=== PATIENT | female | born 1960 | race Caucasian/White ===

== ENCOUNTER 2020-02-24 08:44 | Day surgery (SDC) | payer SELFPAY ==
[2020-02-19 13:55] VITALS: BMI 25.4
[2020-02-24 09:38] VITALS: BP 126/83; PULSE 81; RESP 18; TEMP 37.3; O2SAT 100
[2020-02-24 09:51] LABS: Glucose Point of Care 102 mg/dL (70-110)
[2020-02-24] MEDS: sodium chloride 0.9% 1,000 ML 30 ML IV (09:54)
--- NOTE | 2020-02-24 10:05 | W.PM.OPSUD ---
Surgery/Procedure H&P Update DATE OF PROCEDURE: February 24, 2020 DATE H&P PERFORMED: 02/15/20 H&P UPDATE INFORMATION: I have reviewed H&P completed within last 30 days, I have examined patient prior to procedure and No changes to prior documentation PREOP DIAGNOSIS: Abdominal pain PRIMARY INDICATION FOR PROCEDURE: The same PLANNED PROCEDURE: Operation Date: 02/24/20 10:05 Proposed Procedures p EGD/COLON 76008 15016 R10.11(Not Applicable) - Boaz Maria MD s Colonoscopy(Not Applicable) - Boaz Maria MD
--- NOTE | 2020-02-24 10:32 | P.ANESASSM_ITS ---
Pre-Anesthetic Assessment Pre-Anesthetic Assessment: Height/Weight: Height 1.6 m Weight 65.317 kg Temp Pulse Resp BP Pulse Ox 99.2 F 81 18 126/83 100 02/24/20 09:38 02/24/20 09:38 02/24/20 09:38 02/24/20 09:38 02/24/20 09:38 Preop Diagnosis: Abdominal pain Proposed Procedure: Operation Date: 02/24/20 10:05 Proposed Procedures p EGD/COLON [id number] R10.11(Not Applicable) - Boaz Maria MD s Colonoscopy(Not Applicable) - Boaz Maria MD Last intake: Intake Last Liquid Date 02/23/20 Last Liquid Time 18:00 Last Solid Date 02/22/20 Social: Social History: Tobacco and No alcohol Exam: Pre-Anes Outpt Exam: alert, oriented x 3, clear to auscultation bilaterally and regular rate & rhythm Airway: Submandibular: WNL Cervical ROM: WNL MP: 2 Dentition: Partials (upper) and Other (very poor dentation) History/ROS: No significant history except as noted Pulmonary: Pulmonary: None reported CV/HEM: CV/HEM: None reported : Comments: one kidney Hepatic: Hepatic: None reported GI: GI: GERD Metabolic: Metabolic: DM Musc/skel: Musc/skel: OA/DJD Neuropsych: Neuropsych: Anxiety and Depression Anesthetic Plan: ASA status: 3 Anesthesia: Anesthesia Evaluation and MAC Risk of > 500 ml blood loss (7ml/kg in children): No Meds/Allergies Current Medications: Current Medications Generic Name Dose Route Start Last Admin Trade Name Freq PRN Reason Stop Dose Admin Sodium Chloride 1,000 mls @ 30 ml s/hr 02/24/20 09:30 02/24/20 09:54 Sodium Chloride 0.9% IV 02/25/20 09:29 30 mls/hr .Q24H DILAN Administration PFSH Anesthesia PFSH: Medical History Abdominal pain Depression Diabetes Surgical History History of laparoscopic cholecystectomy History of tubal ligation Family History Denies family history of Anesthesia complication Bleeding disorder Social History Smoking and tobacco status: current every day smoker Second hand smoke exposure: No Alcohol intake: never Adopted: No Caregiver/support person: Yes Lives independently: Yes Household members: spouse Housing: House Marital status: service: No Current occupational status: employed Current occupational exposures/hazards: No Pets and animals: No History of recent travel: No Sexually active: No Current gender identity: Female Morena/Hinduism: Uatsdin Data Anesthesia Other Labs: Laboratory Results - last 48 hr 02/24/20 09:48 POC Glucose 102 Cardiac Studies: No Data to Display
[2020-02-24 11:32] VITALS: BP 104/70; PULSE 67; RESP 16; TEMP 36.7; O2SAT 96
[2020-02-25 06:34] LABS: H. Pylori / CLO Test Negative
== END 2020-02-24 12:00 | disposition home or self-care (01) ==
PROVIDERS: Visit Provider Surgery
PROC: 0DJ08ZZ Inspection of Upper Intestinal Tract, Via Natural or Artificial Opening Endoscopic (ICD-10-PCS; CPT 43235; principal; 2020-02-24 10:00)
PROC: 0DJD8ZZ Inspection of Lower Intestinal Tract, Via Natural or Artificial Opening Endoscopic (ICD-10-PCS; CPT 45378; 2020-02-24 10:00)
DX: R10.84 Generalized abdominal pain (principal); K56.41 Fecal impaction; K29.70 Gastritis, unspecified, without bleeding; K21.9 Gastro-esophageal reflux disease without esophagitis; E11.9 Type 2 diabetes mellitus without complications; Z79.84 Long term (current) use of oral hypoglycemic drugs; M19.90 Unspecified osteoarthritis, unspecified site; F17.210 Nicotine dependence, cigarettes, uncomplicated
CPT/HCPCS: 12345; 36416; 43239; 45378; 82962; 87077; J2704; J7030

== ENCOUNTER 2020-03-11 08:51 | Outpatient (CLI) | payer SELFPAY ==
--- NOTE | 2020-03-11 09:30 | US_ITS ---
WS: [id number] Complete ABDOMINAL ULTRASOUND HISTORY: ABDOMINAL PAIN COMPARISON: None available. Liver: 14.2 cm in length. Liver is normal size and echogenicity with no mass or intrahepatic dilatati on. Gallbladder: Prior cholecystectomy. Pancreas: Normal size and echogenicity. CBD: 0.3 cm. Right kidney: 7.9 cm x 3.1 cm x 3.1 cm. Moderate atrophy of the RIGHT kidney. Increased echogenicity . No solid mass or obstruction. Left kidney: 9.6 cm x 4.5 cm x 5.1 cm. Normal size kidney. Cyst in the central pelvis measures 3.6 x 3.4 x 3.9 cm. No solid mass. Spleen: Normal size and echogenicity. Abdominal aorta and IVC are within normal limits. No ascites. US/US abdomen complete* [id number] IMPRESSION: 1. Prior cholecystectomy. 2. No bile duct dilatation. 3. Moderate RIGHT renal atrophy. 4. Simple cyst LEFT kidney.
== END 2020-03-11 08:52 | disposition home or self-care (01) ==
LOC: RAD 08:54
PROVIDERS: Visit Provider Surgery
DX: R10.9 Unspecified abdominal pain (principal); N26.1 Atrophy of kidney (terminal); N28.1 Cyst of kidney, acquired
CPT/HCPCS: 76700

== ENCOUNTER 2020-03-30 07:57 | Day surgery (SDC) | payer SELFPAY ==
[2020-03-28 14:15] VITALS: BMI 24.7
--- NOTE | 2020-03-30 08:20 | P.ANESASSM_ITS ---
Pre-Anesthetic Assessment Pre-Anesthetic Assessment: Height/Weight: Height 1.6 m Weight 63.503 kg Preop Diagnosis: Abdominal pain Proposed Procedure: Operation Date: 03/30/20 09:00 Proposed Procedures p [id number]/R10.9(Not Applicable) - Boaz Maria MD Familial anesthetic complications: None Was Beta Melody taken within 24 hours: N/A Last intake: Intake Last Liquid Date 03/29/20 Last Liquid Time 21:00 Last Solid Date 03/28/20 Last Solid Time 16:30 Social: Social History: Tobacco and No alcohol Exam: Pre-Anes Outpt Exam: alert, oriented x 3, clear to auscultation bilaterally and regular rate & rhythm Airway: Cervical ROM: WNL MP: 1 Dentition: Partials Pulmonary: Pulmonary: Asthma : : None reported Hepatic: Hepatic: None reported GI: GI: GERD Metabolic: Metabolic: DM Musc/skel: Musc/skel: None reported Neuropsych: Neuropsych: None reported Anesthetic Plan: ASA status: 2 Anesthesia: MAC Risk of > 500 ml blood loss (7ml/kg in children): No PFSH Anesthesia PFSH: Medical History Abdominal pain Depression Diabetes Surgical History History of colonoscopy (~01/2020) History of esophagogastroduodenoscopy (EGD) (~01/2020) History of laparoscopic cholecystectomy History of tubal ligation Family History Denies family history of Anesthesia complication Bleeding disorder Social History Smoking and tobacco status: current every day smoker Second hand smoke exposure: No Alcohol intake: never Adopted: No Caregiver/support person: Yes Lives independently: Yes Household members: spouse Housing: House Marital status: service: No Current occupational status: employed Current occupational exposures/hazards: No Pets and animals: No History of recent travel: No Sexually active: No Current gender identity: Female Morena/Orthodoxy: Evangelical Data Anesthesia Cardiac Studies: No Data to Display
[2020-03-30] MEDS: sodium chloride 0.9% 1,000 ML 30 ML IV (08:37)
--- NOTE | 2020-03-30 08:38 | W.PM.OPSUD ---
Surgery/Procedure H&P Update DATE OF PROCEDURE: March 30, 2020 DATE H&P PERFORMED: 03/14/20 H&P UPDATE INFORMATION: I have reviewed H&P completed within last 30 days, I have examined patient prior to procedure and No changes to prior documentation (Patient feels that she had a better colon prep this time) PREOP DIAGNOSIS: Abdominal pain PRIMARY INDICATION FOR PROCEDURE: The same PLANNED PROCEDURE: Operation Date: 03/30/20 09:00 Proposed Procedures p [id number]/R10.9(Not Applicable) - Boaz Maria MD
[2020-03-30 09:04] VITALS: BP 97/60; PULSE 67; RESP 16; TEMP 36.4; O2SAT 99
--- NOTE | 2020-03-30 09:08 | ANE.PACU2 ---
Inpatient post-anesthesia follow up: Airway intact: Yes Vital signs: Temperature Pulse Rate Respiratory Rate Blood Pressure Pulse Oximetry Oxygen Delivery Me thod Oxygen Flow Rate Fraction of Inspir ed Oxygen Hydration adequate: Yes Nausea and vomiting: No Mental status: Baseline
[2020-03-30 09:22] VITALS: BP 105/68; PULSE 66; RESP 16; O2SAT 100
== END 2020-03-30 09:30 | disposition home or self-care (01) ==
PROVIDERS: Visit Provider Surgery
PROC: 0DJD8ZZ Inspection of Lower Intestinal Tract, Via Natural or Artificial Opening Endoscopic (ICD-10-PCS; CPT 45378; principal; 2020-03-30 09:00)
DX: R10.84 Generalized abdominal pain (principal); E11.9 Type 2 diabetes mellitus without complications; Z79.84 Long term (current) use of oral hypoglycemic drugs; F17.210 Nicotine dependence, cigarettes, uncomplicated; K21.9 Gastro-esophageal reflux disease without esophagitis; J45.909 Unspecified asthma, uncomplicated
CPT/HCPCS: 12345; 45378; J2704; J7030

== ENCOUNTER 2020-05-02 08:09 | Outpatient (CLI) | payer SELFPAY ==
--- NOTE | 2020-05-02 08:30 | FL_ITS ---
WS: [id number] BARIUM ENEMA SINGLE CONTRAST. HISTORY: R10.9 Unspecified abdominal pain COMPARISON: None available. FLUOROSCOPY TIME: 1.7 minutes. Barium is instilled via gravity through a rectal tip. There are no strictures or soft tissue mass is identified. There is mild tortuosity and overlapping loops of colon. No significant diverticula ident ified. There is reflux of the contrast into the distal small bowel. The appendix fills and normal. Prior cholecystectomy. Mild RIGHT convex curvature lumbar spine. FL/FL barium enema [id number] IMPRESSION: 1. Mild tortuosity and overlapping loops of colon. No strictures or diverticul ar disease. 2. Normal appendix. 3. Prior cholecystectomy.
== END 2020-05-02 08:10 | disposition home or self-care (01) ==
LOC: RAD 08:10
PROVIDERS: Visit Provider Surgery
DX: R10.9 Unspecified abdominal pain (principal); Z90.49 Acquired absence of other specified parts of digestive tract
CPT/HCPCS: 74270

== ENCOUNTER 2020-09-12 07:41 | Outpatient (CLI) | payer SELFPAY ==
--- NOTE | 2020-09-12 07:47 | US_ITS ---
WS: [id number] ULTRASOUND RENAL TECHNIQUE: Ultrasound examination of both kidneys. CLINICAL INFORMATION: CYST OF KIDNEY COMPARISON: None. FINDINGS: RIGHT: Right kidney somewhat small with cortical atrophy Echogenicity: Increased echogenicity Cortical thickness: 0.8 cm; Normal. Hydronephrosis: None. Perinephric fluid: None. Right kidney measures: 8.8 cm x 4.6 cm x 3.2 cm. LEFT:Simple cyst left kidney measuring 3.6 x 3.8 x 3.5 cm Left kidney is normal in size and appearance. Echogenicity: Normal. Cortical thickness: 1.6 cm; Normal. Hydronephrosis: None. Perinephric fluid: None. Left kidney measures: 9.7 cm x 5.1 cm x 3.9 cm. Normal visualized aorta. Normal bladder US/US renal BI* [id number] IMPRESSION: 1. Simple cyst left kidney measuring 3.6 x 3.8 x 3.5 cm unchanged from previou s 2. No hydronephrosis in either kidney. 3. Somewhat atrophic right kidney with increased echogenicity can be seen with medical renal disease.
== END 2020-09-12 07:42 | disposition home or self-care (01) ==
LOC: US 07:42
PROVIDERS: PCP Nurse Practitioner Family; Visit Provider Registered Nurse
DX: N28.1 Cyst of kidney, acquired (principal)
CPT/HCPCS: 76770

== ENCOUNTER 2021-11-27 14:13 | Outpatient (CLI) | payer OTHER, SELFPAY ==
--- NOTE | 2021-11-27 14:32 | USCV_ITS ---
Donna Adam Age: 61 Gender: F : 1960 Exam Date: 11/27/2021 15:01 Ordering Phys: Narciso Ventura Technologist: TAMIKO [place]am [place] [facility] [place] Indication: Peripheral edema BP: 129 / 86 HR: 78 Rhythm: Sinus Technical Quality: Suboptimal MEASUREMENTS (Male / Female) Normal Values 2D ECHO LV Diastolic Diameter PLAX 2.5 cm 4.2 - 5.9 / 3.9 - 5.3 cm LV Systolic Diameter PLAX 1.7 cm IVS Diastolic Thickness 1.1 cm 0.6 - 1.0 / 0.6 - 0.9 cm IVS Systolic Thickness 1.1 cm LVPW Diastolic Thickness 1.0 cm 0.6 - 1.0 / 0.6 - 0.9 cm LVPW Systolic Thickness 1.1 cm LVOT Diameter 2.0 cm LV Ejection Fraction 2D Teich 66.2 % LV Ejection Fraction MOD 2C 56.3 % LV Ejection Fraction 2C AL 61.3 % LA Diameter 2.7 cm LA Width 2.3 cm LA Height 3.0 cm RA Width 2.3 cm RA Height 3.0 cm Aorta at Sinotubular Diameter 2.1 cm M-MODE Aortic Annulus Diameter 2.9 cm LA Ao Ratio MM 0.9 MV E Point Septal Separation 0.4 cm DOPPLER AV Peak Velocity 108.0 cm/s LVOT Peak Velocity 95.0 cm/s AV Area Cont Eq vti 3.3 cm squared AV Area Cont Eq pk 2.9 cm squared MV Area PHT 3.4 cm squared Mitral E to A Ratio 0.7 MV E' Velocity 32.0 cm/s Mitral E to MV E' Ratio 8.7 Mitral E to LV E' Lateral Ratio 8.1 Mitral E to LV E' Septal Ratio 9.6 TR Peak Velocity 221.7 cm/s TR Peak Gradient 19.7 mmHg TV Peak E Velocity 42.0 cm/s Right Atrial Pressure 3.0 mmHg Pulmonary Artery Systolic Pressu 22.7 mmHg PV Peak Velocity 90.0 cm/s RV Acceleration Time 0.2 s RV Ejection Time 0.3 s RV AcT/ET 0.6 FINDINGS Left Ventricle Normal left ventricular cavity size and wall thickness. Normal left ventricular systolic function. Left ventricular ejection fraction is estimated at 70 %. No diagnostic regional wall motion abnormalities. Normal diastolic function. Right Ventricle Normal right ventricular size and systolic function. RVSP could not be calculated due to incomplete tricuspid regurgitation velocity profile. Right Atrium Normal right atrial size. Right atrial pressure estimated at 3 mmHg. Left Atrium Normal left atrial size. Mitral Valve Structurally normal mitral valve. No mitral valve stenosis. No mitral valve regurgitation. Aortic Valve Structurally normal trileaflet aortic valve. No aortic valve stenosis. No aortic valve regurgitation. Tricuspid Valve Structurally normal tricuspid valve. No tricuspid valve stenosis. Trace tricuspid valve regurgitation. Pulmonic Valve Pulmonic valve not well visualized. Pericardium No pericardial effusion. Prominent epicardial fat. Aorta Normal size aortic root and proximal ascending aorta. Normal- sized inferior vena cava with normal respiratory variation. CONCLUSIONS 1. Normal left ventricular cavity size, wall thickness and systolic function. Left ventricular ejection fraction is estimated at 70 %. No diagnostic regional wall motion abnormalities. Normal diastolic function. 2. No significant valvular abnormality. 3. Right atrial pressure estimated at 3 mmHg. 4. No prior similar studies to compare. Lizbeth Gordon MD (Electronically Signed) Final Date: 29 November 2021 12:09 S
== END 2021-11-27 14:14 | disposition home or self-care (01) ==
LOC: RAD 14:28
PROVIDERS: PCP Nurse Practitioner Family; Visit Provider Registered Nurse
DX: R60.0 Localized edema (principal)
CPT/HCPCS: 93306

== ENCOUNTER → 2022-05-11 12:04 | Outpatient (BNVA) | payer OTHER, SELFPAY | PROVIDERS: PCP Nurse Practitioner Family; Visit Provider Nurse Practitioner Family | DX: E11.9 Type 2 diabetes mellitus without complications (principal) | CPT/HCPCS: 80053; 80061; 83036; 85025 ==

== ENCOUNTER → 2022-12-07 08:13 | Outpatient (BNVA) | payer OTHER, BC, SELFPAY | PROVIDERS: PCP Nurse Practitioner Family; Visit Provider Nurse Practitioner Family | DX: E11.9 Type 2 diabetes mellitus without complications (principal); E78.5 Hyperlipidemia, unspecified | CPT/HCPCS: 80053; 80061; 83036; 85025 ==

== ENCOUNTER 2022-12-14 20:48 | Emergency (ER) | payer OTHER, BC, MEDICAID, SELFPAY ==
[2022-12-14 20:51] VITALS: BP 144/70; PULSE 89; RESP 16; TEMP 36.6; O2SAT 98; BMI 26.9
--- NOTE | 2022-12-14 21:04 | W.ED.RECABL ---
Documented by User: GULSHAN Guerra 12/14/22 21:51 HPI - Recheck/Abnormal Lab/Rx General: Chief Complaint: Recheck/Abnormal Lab/Rx Stated Complaint: Dr. Arnold sent, K+ is high Time Seen by Provider: 12/14/22 21:04 History of Present Illness: 62-year-old female comes in today for concerns of elevated potassium. Patient had a elevated potassium on laboratory done today that was registered at 6.6. Patient appears nontoxic. Patient reports no chest pain or shortness of breath. Patient is alert and oriented. Patient had a prior blood test done about 3 days prior that showed 5.9. Patient has a history of diabetes mellitus type 2. Patient takes metformin, pantoprazole, famotidine, pioglitazone, and lorazepam. Patient reports no falls or injuries. Patient denies any [id number] supplements. Patient does have an atrophied kidney. Review of Systems General: Reports: 10 or more systems reviewed and unremarkable except in HPI and below Const: Denies: fever(s) Card: Denies: chest pain Resp: Denies: dyspnea GI: Denies: nausea, vomiting, diarrhea or constipation Musc: Denies: neck pain or back pain Skin/Breast: Denies: rash PFSH ED PFSH: Medical History Abdominal pain Patient felt better after her colon prep Depression Diabetes Surgical History History of colonoscopy (~01/2020) History of esophagogastroduodenoscopy (EGD) (~01/2020) History of laparoscopic cholecystectomy History of tubal ligation Family History Denies family history of Anesthesia complication Bleeding disorder Social History Smoking and tobacco status: current every day smoker Second hand smoke exposure: No Alcohol intake: never Adopted: No Caregiver/support person: Yes Lives independently: Yes Household members: spouse Housing: House Marital status: service: No Current occupational status: employed Current occupational exposures/hazards: No Pets and animals: No Sexually active: No Current gender identity: Female Morena/Quaker: Scientology Physical Exam Const: COMMON NORMALS: alert HENMT: COMMON NORMALS: normocephalic HEAD & SCALP: normocephalic Neck/C-Spine: COMMON NORMALS: full ROM Chest: COMMONS NORMALS: normal palpation of entire chest wall Resp: COMMON NORMALS: normal respiratory effort Cardio: COMMON NORMALS: regular rate and regular rhythm RATE: regular rate RHYTHM: regular rhythm GI: COMMON NORMALS: Soft to palpation PALPATION: Yes Soft to palpation Extremity: COMMON NORMALS: full ROM Neuro: SENSORIUM/ORIENTATION: Yes alert Skin: COMMON NORMALS: turgor normal GENERAL SKIN EXAM: turgor normal Course Vital Signs: Vital signs: Vital Signs Temperature 97.9 F 12/14/22 20:51 Pulse Rate 89 12/14/22 20:51 Respiratory Rate 16 12/14/22 20:51 Blood Pressure 144/70 12/14/22 20:51 Pulse Oximetry 98 12/14/22 20:51 Oxygen Delivery Me thod 12/14/22 20:51 MDM - Recheck/Abnormal Lab/Rx Medical Decision Making 62-year-old female comes in today for complaints of elevated blood potassium. On exam patient appears nontoxic. Patient appears in no acute distress. Abdomen soft nontender. Vital signs are normal. Differential diagnosis includes but not limited to hyperkalemia, chronic kidney disease, abnormal lab value. BMP showed a potassium of 3.7. No other concerns were noted on the labs. Recommend patient follow-up with primary care for further instructions. Return to ED for new concerns. Lab Data 12/14/22 21:10 Laboratory Results Sodium 140 mmol/L (136-145) 12/14/22 21:10 Potassium 3.7 mmol/L (3.5-5.1) 12/14/22 21:10 Chloride 103 mmol/L (98-107) 12/14/22 21:10 Carbon Dioxide 23 mmol/L (22-29) 12/14/22 21:10 Anion Gap 17.7 (5-19) 12/14/22 21:10 BUN 8 mg/dL (8-23) 12/14/22 21:10 Creatinine 0.9 mg/dL (0.5-0.9) 12/14/22 21:10 GFR Calculation 63.0 mL/min (90-130) L 12/14/22 21:10 Glucose 131 mg/dL (65-115) H 12/14/22 21:10 Calculated Osmolality 290 mOsm/kg (285-295) 12/14/22 21:10 Calcium 9.9 mg/dL (8.5-10.5) 12/14/22 21:10 Discharge Plan Discharge Patient Disposition: Home Clinical Impression: Abnormal blood chemistry level Condition: Stable Prescriptions: No Action ezetimibe 10 mg tablet 10 mg PO DAILY metformin 500 mg tablet extended release 24 hr 500 mg PO BID pioglitazone [Actos] 15 mg tablet 15 mg PO DAILY Qty: 90 1RF buspirone 15 mg tablet PO pioglitazone [Actos] 45 mg tablet 45 mg PO DAILY Qty: 90 1RF loratadine [Claritin] 10 mg tablet 10 mg PO DAILY lorazepam [Ativan] 0.5 mg tablet 0.5 mg PO TID PRN (Reason: anxiety) Qty: 90 1RF pantoprazole [Protonix] 40 mg tablet,delayed release (DR/EC) 40 mg PO DAILY Qty: 90 2RF famotidine [Zantac-360 (famotidine)] 20 mg tablet 20 mg PO BID Qty: 180 2RF sennosides [Senna Lax] 8.6 mg tablet 8.6 mg PO BID PRN (Reason: constipation) Qty: 90 1RF (DME) FreeStyle Yamilex 14 Day Sensor Kit See Rx Instructions .Route Qty: 1 8RF Rx Instructions: As directed (DME) Dexcom G6 Transmitter Device See Rx Instructions .Route Qty: 1 5RF Rx Instructions: As directed (DME) Dexcom G6 Sensor Device See Rx Instructions .Route Qty: 3 5RF Rx Instructions: As directed (DME) Dexcom G6 E Commerce Architect Misc See Rx Instructions .Route Qty: 1 5RF Rx Instructions: As directed Discharge Orders: Discharge ED (Routine); Ordered 12/14/22 Ordered By: Chilango De Anda Referrals: Bobby Arnold FNP [Primary Care Provider] - Discharge Diet: Usual diet Discharge Activity: Increase activity as tolerated Patient Instructions: Hyperkalemia (ED) Activity Restrictions/Additional Instructions: Home and rest. Continue with routine care. Follow-up with primary care for further instructions. Coding Level of Care Code ED Managed Care Analyst for Chg Fwd Documented by User: Anand Viera DO 12/15/22 00:56 HPI - Recheck/Abnormal Lab/Rx General: Chief Complaint: Recheck/Abnormal Lab/Rx Stated Complaint: Dr. Arnold sent, K+ is high Time Seen by Provider: 12/14/22 21:04 PFSH ED PFSH: Medical History Abdominal pain Patient felt better after her colon prep Depression Diabetes Surgical History History of colonoscopy (~01/2020) History of esophagogastroduodenoscopy (EGD) (~01/2020) History of laparoscopic cholecystectomy History of tubal ligation Family History Denies family history of Anesthesia complication Bleeding disorder Social History Smoking and tobacco status: current every day smoker Second hand smoke exposure: No Alcohol intake: never Adopted: No Caregiver/support person: Yes Lives independently: Yes Household members: spouse Housing: House Marital status: service: No Current occupational status: employed Current occupational exposures/hazards: No Pets and animals: No Sexually active: No Current gender identity: Female Morena/Quaker: Scientology Course Vital Signs: Vital signs: Vital Signs Temperature 97.9 F 12/14/22 20:51 Pulse Rate 89 12/14/22 20:51 Respiratory Rate 16 12/14/22 20:51 Blood Pressure 144/70 12/14/22 20:51 Pulse Oximetry 98 12/14/22 20:51 Oxygen Delivery Me thod 12/14/22 20:51 MDM - Recheck/Abnormal Lab/Rx Medical Decision Making 62-year-old female comes in today for complaints of elevated blood potassium. On exam patient appears nontoxic. Patient appears in no acute distress. Abdomen soft nontender. Vital signs are normal. Differential diagnosis includes but not limited to hyperkalemia, chronic kidney disease, abnormal lab value. BMP showed a potassium of 3.7. No other concerns were noted on the labs. Recommend patient follow-up with primary care for further instructions. Return to ED for new concerns. This patient was originally seen by GULSHAN Hugo.? I agree with his history, evaluation, and treatment. Lab Data 12/14/22 21:10 Laboratory Results Sodium 140 mmol/L (136-145) 12/14/22 21:10 Potassium 3.7 mmol/L (3.5-5.1) 12/14/22 21:10 Chloride 103 mmol/L (98-107) 12/14/22 21:10 Carbon Dioxide 23 mmol/L (22-29) 12/14/22 21:10 Anion Gap 17.7 (5-19) 12/14/22 21:10 BUN 8 mg/dL (8-23) 12/14/22 21:10 Creatinine 0.9 mg/dL (0.5-0.9) 12/14/22 21:10 GFR Calculation 63.0 mL/min (90-130) L 12/14/22 21:10 Glucose 131 mg/dL (65-115) H 12/14/22 21:10 Calculated Osmolality 290 mOsm/kg (285-295) 12/14/22 21:10 Calcium 9.9 mg/dL (8.5-10.5) 12/14/22 21:10 Discharge Plan Discharge Patient Disposition: Home Clinical Impression: Abnormal blood chemistry level Condition: Stable Prescriptions: No Action ezetimibe 10 mg tablet 10 mg PO DAILY metformin 500 mg tablet extended release 24 hr 500 mg PO BID pioglitazone [Actos] 15 mg tablet 15 mg PO DAILY Qty: 90 1RF buspirone 15 mg tablet PO pioglitazone [Actos] 45 mg tablet 45 mg PO DAILY Qty: 90 1RF loratadine [Claritin] 10 mg tablet 10 mg PO DAILY lorazepam [Ativan] 0.5 mg tablet 0.5 mg PO TID PRN (Reason: anxiety) Qty: 90 1RF pantoprazole [Protonix] 40 mg tablet,delayed release (DR/EC) 40 mg PO DAILY Qty: 90 2RF famotidine [Zantac-360 (famotidine)] 20 mg tablet 20 mg PO BID Qty: 180 2RF sennosides [Senna Lax] 8.6 mg tablet 8.6 mg PO BID PRN (Reason: constipation) Qty: 90 1RF (DME) FreeStyle Yamilex 14 Day Sensor Kit See Rx Instructions .Route Qty: 1 8RF Rx Instructions: As directed (DME) Dexcom G6 Transmitter Device See Rx Instructions .Route Qty: 1 5RF Rx Instructions: As directed (DME) Dexcom G6 Sensor Device See Rx Instructions .Route Qty: 3 5RF Rx Instructions: As directed (DME) Dexcom G6 E Commerce Architect Misc See Rx Instructions .Route Qty: 1 5RF Rx Instructions: As directed Discharge Orders: Discharge ED (Routine); Ordered 12/14/22 Ordered By: Chilango De Anda Referrals: Bobby Arnold FNP [Primary Care Provider] - Discharge Diet: Usual diet Discharge Activity: Increase activity as tolerated Patient Instructions: Hyperkalemia (ED) Activity Restrictions/Additional Instructions: Home and rest. Continue with routine care. Follow-up with primary care for further instructions. Coding Level of Care Code ED Managed Care Analyst for Ghazala Ferrer
[2022-12-14 21:39] LABS: Anion Gap 17.7 (5-19); Blood Urea Nitrogen 8 mg/dL (8-23); Calcium 9.9 mg/dL (8.5-10.5); Carbon Dioxide 23 mmol/L (22-29); Chloride 103 mmol/L (98-107); Glucose 131 mg/dL (65-115); Osmolality Calculated 290 mOsm/kg (285-295); Potassium 3.7 mmol/L (3.5-5.1); Sodium 140 mmol/L (136-145)
== END 2022-12-14 22:44 | disposition home or self-care (01) ==
PROVIDERS: Emergency Provider Nurse Practitioner Family; PCP Nurse Practitioner Family
DX: E87.5 Hyperkalemia (principal); Z79.84 Long term (current) use of oral hypoglycemic drugs; E11.9 Type 2 diabetes mellitus without complications; F17.210 Nicotine dependence, cigarettes, uncomplicated
CPT/HCPCS: 80048; 80053; 99283

== ENCOUNTER → 2023-03-18 11:33 | Outpatient (BNVA) | payer OTHER, BC, MEDICAID, SELFPAY | PROVIDERS: PCP Nurse Practitioner Family; Visit Provider Nurse Practitioner | DX: E11.9 Type 2 diabetes mellitus without complications (principal) | CPT/HCPCS: 80053; 83036; 84443; 85025 ==

== ENCOUNTER 2023-07-11 06:00 | Day surgery (SDC) | payer MEDICARE, MEDICAID, SELFPAY ==
[2023-07-11 06:15] VITALS: BP 140/85; PULSE 90; RESP 18; TEMP 36.1; O2SAT 96; BMI 25.8
[2023-07-11] MEDS: sodium chloride 0.9% 1,000 ML 30 ML IV (06:27)
[2023-07-11 06:29] LABS: Glucose Point of Care 186 mg/dL (70-110)
--- NOTE | 2023-07-11 06:44 | P.ANESASSM_ITS ---
Pre-Anesthetic Assessment Height/Weight: Height 1.6 m Weight 66.224 kg Temp Pulse Resp BP Pulse Ox O2 Del Method 97 F L 90 18 140/85 96 Room Air 07/11/23 06:15 07/11/23 06:15 07/11/23 06:15 07/11/23 06:15 07/11/23 06:15 07/11/23 06:15 Preop Diagnosis: screening Operation Date: 07/11/23 07:00 Proposed Procedures p [id number] egd [id number] colon, G0121 screen colon A risk K21.9,Z12.11(Not Applicable) - Robb Fowler DO s Colonoscopy(Not Applicable) - Robb Fowler DO Was Beta Melody taken within 24 hours: N/A Was Clonidine taken within 24 hours: N/A Last intake: Intake Last Liquid Date 07/10/23 Last Liquid Time 21:00 Last Solid Date 07/08/23 Last Solid Time 17:00 Social Tobacco 1/2 pack(s) per day 10 pack years Exam alert and oriented x 3 Airway Submandibular: within normal limits Cervical ROM: within normal limits Mallampati: Class II Dentition: false History/ROS No significant history except as noted Pulmonary Asthma CV/HEM None reported None reported (one kidney) Hepatic None reported GI Gastroesophageal Reflux Disease and Hiatal Hernia Metabolic Diabetes Mellitus Musc/skel None reported Neuropsych Anxiety Anesthetic Plan ASA status: 2 Anesthesia: MAC Risk of > 500 ml blood loss (7ml/kg in children): No Medications/Allergies Home Medications Medication Instructions Recorded Confirmed Last Taken Type flash glucose sensor (FreeStyle #1 ea 06/08/22 07/11/23 Unknown Rx Yamilex 14 Day Sensor kit) loratadine 10 mg tablet (Claritin) 10 mg PO DAILY 08/15/22 07/09/23 07/07/23 H istory famotidine 20 mg tablet 20 mg PO BID #180 tabs 10/17/22 07/09/23 07/10/23 Rx (Zantac-360 (famotidine)) sennosides 8.6 mg tablet (Senna 8.6 mg PO BID PRN constipation #90 10/17/2206/3007/07/23 Rx Lax) tabs pioglitazone 45 mg tablet (Actos) 45 mg PO DAILY #90 tabs 12/12/22 07/09/23 07/09/23 Rx lorazepam 0.5 mg tablet (Ativan) 0.5 mg PO TID PRN anxiety #90 tabs 02/13/23 07/09/23 07/10/23 Rx sitagliptin phosphate 25 mg tablet 25 mg PO DAILY #30 tabs 03/20/23 07/09/23 07/10/23 Rx (Januvia) lactulose 20 gram oral packet 20 g PO BID PRN laxative effect 06/06/23 07/09/23 07/07/23 Rx #30 ea simethicone 180 mg capsule 180 mg PO BID PRN abdominal 06/06/23 07/09/23 07/07/23 Rx distention/gas #60 caps blood-glucose meter,continuous #1 ea 07/02/23 07/11/23 Unknown Rx (Dexcom G7 Visual Merchandising Assistant) blood-glucose sensor (Dexcom G7 #1 ea 07/02/23 07/11/23 Unknown Rx Sensor device) pantoprazole 40 mg tablet,delayed 40 mg PO BID 6 weeks #84 tabs 07/03/23 07/09/23 07/10/23 Rx release (Protonix) Allergies Allergy/AdvReac Type Severity Reaction Status Date / Time No Known Allergies Allergy Verified 07/09/23 10:39 Current Medications Generic Name Dose Route Start Last Admin Trade Name Freq PRN Reason Stop Dose Admin Sodium Chloride 1,000 mls @ 30 mls/hr 07/11/23 06:15 07/11/23 06:27 Sodium Chloride 0.9% IV 07/12/23 06:14 30 mls/hr .Q24H DILAN Administration PFSH Anesthesia Medical History Abdominal pain Patient felt better after her colon prep Depression Diabetes Surgical History History of colonoscopy (~01/2020) History of esophagogastroduodenoscopy (EGD) (~01/2020) History of laparoscopic cholecystectomy History of tubal ligation Family History Denies family history of Anesthesia complication Bleeding disorder Social History Smoking and tobacco/nicotine status: current every day tobacco/nicotine user Second hand smoke exposure: No Alcohol intake: never Adopted: No Caregiver/support person: Yes Lives independently: Yes Household members: spouse Housing: House Marital status: service: No Current occupational status: employed Current occupational exposures/hazards: No Pets and animals: No Sexually active: No Do you think of yourself as: Straight/Heterosexual Current gender identity: Female Morena/Mandaeism: Pentecostal Data Anesthesia Cardiac Studies: Echocardiogram 11/27/21
--- NOTE | 2023-07-11 08:03 | W.PM.OPSUD ---
Surgery/Procedure H&P Update DATE OF PROCEDURE: July 11, 2023 DATE H&P PERFORMED: 07/03/23 H&P UPDATE INFORMATION: I have reviewed H&P completed within last 30 days, I have examined patient prior to procedure and No changes to prior documentation PREOP DIAGNOSIS: screening PLANNED PROCEDURE: Operation Date: 07/11/23 07:00 Proposed Procedures p 02770 egd 59104 colon, G0121 screen colon A risk K21.9,Z12.11(Not Applicable) - DO zachary Rees Colonoscopy(Not Applicable) - Robb Fowler DO
[2023-07-11 08:27] VITALS: BP 87/53; PULSE 68; RESP 16; TEMP 36.4; O2SAT 91
[2023-07-11 08:33] VITALS: BP 93/56; PULSE 68; RESP 16; O2SAT 91
--- NOTE | 2023-07-11 08:39 | PC.NURSE ---
patient has her glasses, hearing aids, dentures and other personal belongings.
[2023-07-11 08:43] VITALS: BP 94/58; PULSE 68; RESP 18; O2SAT 94
--- NOTE | 2023-07-11 12:44 | ANE.PACU2 ---
Inpatient post-anesthesia follow up: Airway intact: Yes Vital signs: Temperature 97.5 F Pulse Rate 68 Respiratory Rate 18 Blood Pressure 94/58 Pulse Oximetry 94 Oxygen Delivery Me thod Room Air Oxygen Flow Rate Fraction of Inspir ed Oxygen Hydration adequate: Yes Nausea and vomiting: No Pain level: 2 Mental status: Baseline
== END 2023-07-11 08:58 | disposition home or self-care (01) ==
PROVIDERS: PCP Nurse Practitioner Family; Visit Provider Surgery
PROC: 0DJ08ZZ Inspection of Upper Intestinal Tract, Via Natural or Artificial Opening Endoscopic (ICD-10-PCS; CPT 43235; principal; 2023-07-11 07:00)
PROC: 0DJD8ZZ Inspection of Lower Intestinal Tract, Via Natural or Artificial Opening Endoscopic (ICD-10-PCS; CPT 45378; 2023-07-11 07:00)
DX: Z12.11 Encounter for screening for malignant neoplasm of colon (principal); D12.5 Benign neoplasm of sigmoid colon; K29.70 Gastritis, unspecified, without bleeding; K21.9 Gastro-esophageal reflux disease without esophagitis; E11.9 Type 2 diabetes mellitus without complications; F17.210 Nicotine dependence, cigarettes, uncomplicated
CPT/HCPCS: 36416; 43239; 45385; 82962; 88305; J2704; J7030

== ENCOUNTER 2023-07-19 06:45 | Outpatient (CLI) | payer MEDICARE, MEDICAID, SELFPAY ==
--- NOTE | 2023-07-19 07:14 | CT_ITS ---
WS: [id number] CT ABDOMEN PELVIS TECHNIQUE: Noncontrast CT of the abdomen and contrast-enhanced CT of the abdomen and pelvis with ariel nal and sagittal reformatted images. CLINICAL INFORMATION: K44.9 - Diaphragmatic hernia without obstruction or gangrene COMPARISON: None. DLP: 830.[address] scans at [facility] use at least one of these dose optimization techniques: automated e xposure control; mA and/or kV adjustment per patient size (includes targeted exams where dose is matc hed to clinical indication); or iterative reconstruction. FINDINGS: Lung bases are well aerated. Mild diffuse fatty filtration of the liver. Prior cholecystectomy. Tiny esophageal hiatal hernia. Normal proximal stomach and duodenum. Normal portal vein and splenic vein. Fatty atrophy of the pancreas. Normal spleen. Normal caliber abdominal aorta. Celiac and SMA are zaman nt. Adrenal glands are normal. Hypoplastic RIGHT kidney. No hydronephrosis in either kidney. LEFT dominique al cyst measuring 4.3 cm. Normal renal parenchymal enhancement. Tiny fat-containing umbilical hernia. Tubal ligation clips. Normal sigmoid colon. No evidence of high -grade small or large bowel obstruction. Normal appendix. No other suspicious findings. IMPRESSION: 1. Tiny esophageal hiatal hernia. 2. Prior cholecystectomy and tubal ligation clips. 3. Diffuse fatty filtration of the liver. 4. LEFT renal cyst measuring 4.3 cm. 5. Hypoplastic RIGHT kidney. 6. Tiny fat-containing umbilical hernia. 7. Lobulated uterus with suspected calcified uterine fibroid. This could be followed-up with ultraso und. Suspected fibroid measures 2.8 x 2.3 cm
[2023-07-19 07:56] LABS: Blood Urea Nitrogen 14 mg/dL (8-23); Glomerular Filtration Rate 45.1 mL/min (90-130)
[2023-07-19] MEDS: iohexol 350 mg/mL 500 mL Btl (per mL) IV (08:00)
[2023-07-19] MEDS: iohexol 350 mg/mL 500 mL Btl (per mL) PO (08:06)
== END 2023-07-19 06:46 | disposition home or self-care (01) ==
LOC: RAD 06:45
PROVIDERS: PCP Nurse Practitioner Family; Visit Provider Nurse Practitioner Family
DX: K44.9 Diaphragmatic hernia without obstruction or gangrene; K76.0 Fatty (change of) liver, not elsewhere classified; N28.1 Cyst of kidney, acquired; K42.9 Umbilical hernia without obstruction or gangrene; Z90.49 Acquired absence of other specified parts of digestive tract; E11.9 Type 2 diabetes mellitus without complications; R14.0 Abdominal distension (gaseous); R10.9 Unspecified abdominal pain
CPT/HCPCS: 74178; 82565; 84520; 99203; Q9967

== ENCOUNTER → 2023-07-23 13:42 | Outpatient (BNVA) | payer MEDICARE, MEDICAID, SELFPAY | PROVIDERS: PCP Nurse Practitioner Family; Visit Provider Surgery | DX: R14.0 Abdominal distension (gaseous) (principal); R10.9 Unspecified abdominal pain | CPT/HCPCS: 99214 ==

== ENCOUNTER 2023-08-05 13:30 | Outpatient (CLI) | payer MEDICARE, MEDICAID, SELFPAY ==
--- NOTE | 2023-08-05 15:00 | US_ITS ---
WS: [id number] US transvaginal [id number] HISTORY: D25.9 - Leiomyoma of uterus, unspecified COMPARISON: CT 07/19/2023 Uterus: 5.1 cm x 4.3 cm x 3.8 cm. Normal size uterus is directed posterior and retroverted. There is a shadowing mass with calcificatio n in the RIGHT lateral uterus measuring 2.7 x 2.7 x 2.0 cm. Corresponds to the calcified fibroid iden tified by recent CT. Endometrium: 0.7 cm. Poorly visualized due to position of the uterus. No abnormality identified. Neither ovary is identified. No free fluid in the cul-de-sac. IMPRESSION: 1. Calcified RIGHT lateral uterine fibroid measures 2.7 x 2.7 x 2.0 cm. 2. Neither ovary is identified.
[2023-08-05 15:46] LABS: Immunoglobulin IGA 417 mg/dL (70-400); Immunoglobulin IGG 1116 mg/dL (700-1600); Immunoglobulin IGM 69 mg/dL (40-230)
[2023-08-08 03:20] LABS: Tissue Transglutaminse AB IGA <1.0 U/mL
== END 2023-08-05 13:31 | disposition home or self-care (01) ==
PROVIDERS: Absent Provider Surgery; PCP Nurse Practitioner Family; Visit Provider Nurse Practitioner Family
DX: D25.9 Leiomyoma of uterus, unspecified (principal)
CPT/HCPCS: 36415; 76830; 82784; 86364

== ENCOUNTER 2023-08-13 08:53 | Outpatient (CLI) | payer MEDICARE, MEDICAID, SELFPAY ==
--- NOTE | 2023-08-13 08:59 | MM_ITS ---
WS: [id number] BILATERAL 3D TOMOSYNTHESIS DIGITAL SCREENING MAMMOGRAPHY WITH CAD CLINICAL INFORMATION: Z12.39 - Encounter for other screening for malignant neop... HISTORY: Screening mammogram. No current complaints. COMPARISON: 2020 TECHNIQUE: Bilateral CC and MLO views. FINDINGS: Scattered fibroglandular densities bilaterally. No suspicious focal mass, asymmetry, calcifications, or architectural distortion. No evidence of malignancy. IMPRESSION: MM/[place] [id number] BI-RADS: 1-Negative FOLLOW UP: 1 Year Follow-up Recommend return to annual screening mammography.
== END 2023-08-13 08:54 | disposition home or self-care (01) ==
LOC: RAD 08:55
PROVIDERS: PCP Nurse Practitioner Family; Visit Provider Nurse Practitioner Family
DX: Z12.31 Encounter for screening mammogram for malignant neoplasm of breast (principal); Z00.00 Encounter for general adult medical examination without abnormal findings
CPT/HCPCS: 77063; 77067

== ENCOUNTER 2023-09-10 07:45 | Outpatient (CLI) | payer MEDICARE, MEDICAID, SELFPAY ==
--- NOTE | 2023-09-10 08:30 | FL_ITS ---
WS: [id number] Exam: FL barium swallow [id number] Date/Time of Exam: 09/10/2023 8:38 AM Reason For Exam: Fluoroscopy time: 2min [id number] minutes # of spot films: Oropharyngeal phase of swallowing was normal. No aspiration or penetration. There was no sign of intr insic esophageal mass or stricture. Esophageal motility was normal. The esophagus is not displaced. N o hiatal hernia or gastroesophageal reflux identified. IMPRESSION: 1. No sign of esophageal mass, stricture, motility disorder or other significant finding.
== END 2023-09-10 07:46 | disposition home or self-care (01) ==
PROVIDERS: PCP Nurse Practitioner Family; Visit Provider Surgery
DX: R10.9 Unspecified abdominal pain (principal); R14.0 Abdominal distension (gaseous)
CPT/HCPCS: 74220

== ENCOUNTER → 2023-10-03 09:37 | Outpatient (BNVA) | payer MEDICARE, MEDICAID, SELFPAY | PROVIDERS: PCP Nurse Practitioner Family; Visit Provider Surgery | DX: Z09 Encounter for follow-up examination after completed treatment for conditions other than malignant neoplasm (principal); K21.9 Gastro-esophageal reflux disease without esophagitis | CPT/HCPCS: 99213 ==

== ENCOUNTER → 2023-12-23 09:37 | Outpatient (BNVA) | payer MEDICARE, MEDICAID, SELFPAY | PROVIDERS: PCP Nurse Practitioner Family; Visit Provider Nurse Practitioner Family | DX: R50.9 Fever, unspecified (principal); J06.9 Acute upper respiratory infection, unspecified | CPT/HCPCS: 87400; 87426 ==

== ENCOUNTER → 2024-05-05 08:25 | Outpatient (BNVA) | payer MEDICARE, SELFPAY | PROVIDERS: PCP Nurse Practitioner Family; Visit Provider Nurse Practitioner Family | DX: L30.9 Dermatitis, unspecified (principal); L81.0 Postinflammatory hyperpigmentation; L29.8 Other pruritus; D22.4 Melanocytic nevi of scalp and neck; D22.39 Melanocytic nevi of other parts of face | CPT/HCPCS: 11102; 99204 ==

== ENCOUNTER → 2024-08-05 14:03 | Outpatient (BNVA) | payer MEDICARE, SELFPAY | PROVIDERS: PCP Nurse Practitioner Family; Visit Provider Nurse Practitioner Family | DX: E11.9 Type 2 diabetes mellitus without complications (principal) | CPT/HCPCS: 80048; 83036 ==

== ENCOUNTER → 2025-02-11 11:28 | Outpatient (BNVA) | payer MEDICARE, SELFPAY | PROVIDERS: PCP Nurse Practitioner Family; Visit Provider Internal Medicine | DX: E11.9 Type 2 diabetes mellitus without complications (principal) | CPT/HCPCS: 99204 ==

== ENCOUNTER → 2025-03-17 07:52 | Outpatient (BNVA) | payer MEDICARE, SELFPAY | PROVIDERS: PCP Nurse Practitioner Family; Visit Provider Nurse Practitioner Family | DX: L73.9 Follicular disorder, unspecified (principal); L28.1 Prurigo nodularis; D18.01 Hemangioma of skin and subcutaneous tissue | CPT/HCPCS: 99214 ==

== ENCOUNTER → 2025-04-16 08:49 | Outpatient (BNVA) | payer MEDICARE, SELFPAY | PROVIDERS: PCP Nurse Practitioner Family; Visit Provider Nurse Practitioner Family | DX: L73.9 Follicular disorder, unspecified (principal); L28.1 Prurigo nodularis; L81.0 Postinflammatory hyperpigmentation; F42.4 Excoriation (skin-picking) disorder | CPT/HCPCS: 99214 ==

== ENCOUNTER → 2025-05-04 08:13 | Outpatient (BNVA) | payer MEDICARE, SELFPAY | PROVIDERS: PCP Nurse Practitioner Family; Visit Provider Internal Medicine | DX: E11.9 Type 2 diabetes mellitus without complications (principal) | CPT/HCPCS: 80053; 80061; 82043; 83036 ==

== ENCOUNTER → 2025-05-13 11:23 | Outpatient (BNVA) | payer MEDICARE, SELFPAY | PROVIDERS: PCP Nurse Practitioner Family; Visit Provider Internal Medicine | DX: E11.9 Type 2 diabetes mellitus without complications (principal); E78.5 Hyperlipidemia, unspecified | CPT/HCPCS: 99214 ==

== ENCOUNTER → 2025-07-12 11:18 | Outpatient (BNVA) | payer MEDICARE, SELFPAY | PROVIDERS: PCP Nurse Practitioner Family; Visit Provider Nurse Practitioner Family | DX: E55.9 Vitamin D deficiency, unspecified (principal); Q60.3 Renal hypoplasia, unilateral; D64.9 Anemia, unspecified; E78.5 Hyperlipidemia, unspecified; E11.22 Type 2 diabetes mellitus with diabetic chronic kidney disease; I12.9 Hypertensive chronic kidney disease with stage 1 through stage 4 chronic kidney disease, or unspecified chronic kidney disease; N18.9 Chronic kidney disease, unspecified | CPT/HCPCS: 80053; 82043; 82306; 82607; 82728; 82746; 83550; 83880; 85025 ==

== ENCOUNTER → 2025-07-22 08:16 | Outpatient (BNVA) | payer MEDICARE, SELFPAY | PROVIDERS: PCP Nurse Practitioner Family; Visit Provider Internal Medicine | DX: E11.65 Type 2 diabetes mellitus with hyperglycemia (principal); E11.22 Type 2 diabetes mellitus with diabetic chronic kidney disease; I12.9 Hypertensive chronic kidney disease with stage 1 through stage 4 chronic kidney disease, or unspecified chronic kidney disease; N18.9 Chronic kidney disease, unspecified; E78.5 Hyperlipidemia, unspecified; Q60.3 Renal hypoplasia, unilateral | CPT/HCPCS: 80053; 80061; 82043; 83036 ==